=== PATIENT | female | born 1950 | race African-American/Black ===

== ENCOUNTER → 2025-03-03 | Outpatient (REF) | payer OTHER | LOC: US 07:49 | PROVIDERS: ATTEND Nurse Practitioner Family | DX: R10.9 Unspecified abdominal pain (principal) | CPT/HCPCS: 76700 ==

== ENCOUNTER → 2025-05-04 | Outpatient (REF) | payer MEDICARE | LOC: NM 11:54 | PROVIDERS: ATTEND Internal Medicine Gastroenterology | DX: Z87.19 Personal history of other diseases of the digestive system (principal) | CPT/HCPCS: 78227; A9537 ==